=== PATIENT | female | born 1990 | race Caucasian/White ===

== ENCOUNTER 2019-09-22 15:17 | Emergency (ER) | payer OTHER ==
--- OUTSIDE RECORDS SUMMARY | 2019-09-22 15:34 | XMS REPORT | Continuity of Care Document ---
:1990 External Reference #:[id number] Author Name James Harris M.D. (transmitted by agent of provider Alla Polanco ) Address [address], [place] [address] Care Team Providers Name Role Phone Mame Page MD - Internal Care Team Information Advisor Consultant Medicine Shelley Michaels FNP-C - Nurse Care Team Information Advisor Consultant Practitioner Problems Active Problems Provider Date Acne vulgaris Mame Page M.D. Onset: 05/08/2016 Migraine without aura, not refractory Onset: Family history of malignant neoplasm of breast Mame Page M.D. Onset: Note: mom at age 65 Social History Type Date Description Comments Sex Unknown ETOH Use Rarely consumes alcohol Tobacco Use Start: Unknown Patient has never smoked Smoking Status Reviewed: 08/16/19 Patient has never smoked Exercise Exercises regularly running every other Type/Frequency day 2-3 miles rock climbing Allergies, Adverse Reactions, Alerts Active Allergies Reaction Severity Comments Date Sulfa hives 07/21/2011 Amoxicillin hives 07/21/2011 Ampicillin Urticaria Moderate 07/28/2012 Medications Active Medications SIG Qnty Indications Ordering Date Provider Aimovig inject sq once a 3ml [id number] Erazo 06/21/2019 70mg/ml month Rickie Harris Solution Auto-Inject Topiramate Take 1 Tablet By 180tabs Samantha Erazo 12/16/2018 50mg Mouth Every Morning Rickie Harris Tablets And 2 Tablets Every Evening Reglan 1 po bid with 30tabs [id number] Erazo 03/04/2018 5mg Tablets naratriptan prn Rickie Harris migraine Propranolol HCL 2 tabs by mouth 360tabs G43.009 James Erazo 01/04/2018 twice a day Rickie Harris 20mg Tablets Naratriptan HCL 1 by mouth as 9tabs G43.009 James Erazo 07/13/2017 needed migraine may Rickie Harris 2.5mg Tablets repeat in 4 hours, max 2/day, max 2 days per week Multi Complete daily Unknown Capsules Tylenol Extra 2 tabs by mouth Unknown Strength three times daily 500mg as needed Tablets Ibuprofen 1 tabs by mouth Unknown 200mg every 8 hours take Tablets with food as needed Medications Administered in Office Medication SIG Qnty Indications Ordering Provider Date Injection Methylprednisolone Sodium Arnie Garcia NP 10/03/2018 Succinate To 40 MG Injection PPD Injection Nurse Visit A 06/30/2017 Immunizations CPT Code Status Date Vaccine Lot # [id number] Given 05/05/2019 Influ Virus Vaccine, Quadrivalent, Split Virus, [place] [address] Given 06/16/2018 Influenza Virus Vaccine, Quadrivalent, Split, Preservative Free 63618 Given 05/31/2017 Influenza Virus Vaccine, Quadrivalent, Split, [id number] Preservative Free 96194 Given 05/14/2016 Influ Virus Vaccine, Quadrivalent, Split Virus, [place] [address] Given 05/15/2015 Influenza Virus Vaccine, Quadrivalent, Split, Preservative Free 18999 Given 05/10/2014 Flu Vaccine Split Virus Preservative Free For Indiv 3Yr Older 06792 Given 12/28/2013 Pneumonia Vaccine [id number] 59026 Given 03/23/2012 Influenza Virus 3Yrs & Over [id number] 02254 Given 07/21/2011 Influenza Virus 3Yrs & Over 15304 Given 07/21/2011 Influenza Virus 3Yrs & Over [id number] 77194 Given 07/17/2011 Yellow Fever Immunization 82802 Given 02/13/2011 Tdap - Tetanus/Diptheria/Acellular Pertussis 72163 Given 10/05/2007 Gardasil (HPV) 88657 Given 06/01/2007 Gardasil (HPV) 63159 Given 03/30/2007 Gardasil (HPV) 03243 Given 12/01/2005 Tdap - Tetanus/Diptheria/Acellular Pertussis 79844 Given 01/20/2005 Meningitis MCV4 MenACWY Meningococcal Conjugate Vaccine 92191 Given 05/18/2003 Hepatitis B Vaccine Adult Dosage 84676 Given 12/27/2002 Hepatitis B Vaccine Adult Dosage 52584 Given 08/11/2002 Hepatitis B Vaccine Adult Dosage 18856 Given 08/25/1996 Tdap - Tetanus/Diptheria/Acellular Pertussis 95833 Given 08/25/1996 Measles Mumps And Rubella MMR 71756 Given 02/22/1993 Varicella (Chicken Pox) Immunization 91430 Given 11/21/1992 Tdap - Tetanus/Diptheria/Acellular Pertussis 09126 Given 11/12/1992 Measles Mumps And Rubella MMR 69429 Given 11/12/1992 Hib PRP-T Conjugate 4 Dose Schedule Vital Signs Date Vital Result Comment 08/16/2019 4:14pm Height 61 inches 5'1" Weight 95.00 lb Heart Rate 68 /min BP Systolic 94 mmHg BP Diastolic 58 mmHg BMI (Body Mass Index) 17.9 kg/m2 06/21/2019 11:09am Height 61 inches 5'1" Weight 95.00 lb Heart Rate 76 /min BP Systolic Sitting 98 mmHg BP Diastolic Sitting 60 mmHg Respiratory Rate 18 /min BMI (Body Mass Index) 17.9 kg/m2 Results Test Acquired Date Facility Test Result H/L Range Note CBC Auto 06/12/2019 [facility] White Blood 6.6 10^3/uL Normal 3.5-10.[address] [place] [address] [phone] Red Blood Count 3.89 10^6/uL Normal 3.70-4.87 Hemoglobin 12.4 g/dL Normal 12.0-16.0 Hematocrit 36 % Normal 35-47 Mean Corpuscular Volume 93 fL Normal 80-97 Mean Corpuscular Hemoglobin 32 pg High 27-31 Mean Corpuscular HGB Conc 34 g/dL Normal 31-36 Red Cell Distribution Width 13 % Normal 10-15 Platelet Count 306 10^3/uL Normal 150-450 Mean Platelet Volume 8.2 fL Normal 7.4-10.4 Abs Neutrophils 4.6 10^3/uL Normal 1.5-7.7 Abs Lymphocytes 1.5 10^3/uL Normal 1.0-4.8 Abs Monocytes 0.4 10^3/uL Normal 0-0.8 Abs Eosinophils 0.1 10^3/uL Normal 0-0.6 Abs Basophils 0.0 10^3/uL Normal 0-0.2 Abs Nucleated RBC 0.0 10^3/uL Granulocyte % 68.6 % Lymphocyte % 22.4 % Monocyte % 6.5 % Eosinophil % 2.1 % Basophil % 0.4 % Nucleated Red Blood Cells % 0.0 Laboratory 06/12/2019 [facility] TSH (Thyroid 1.27 Normal 0.34 -5.60 test finding [address] Stim Horm) mcIU/mL [place], [place] [id number] [phone] Ferritin 82.6 ng/mL Normal 11-307 Procedures Date Code Description Status 08/31/2017 76779503 Colonoscopy Completed Medical Devices Description No Information Available Encounters Type Date Location Provider Dx Diagnosis Office Visit 06/21/2019 [facility] James Erazo G43.009 Migraine w/o aura, 11:00a [facility] M.D. not intractable, w/o status migrainosus Office Visit 03/14/2019 [facility] Arnie Garcia NP G43.009 Migraine w/o aura, 9:30a [facility] not intractable, w/o status migrainosus Assessments Date Code Description Provider 06/21/2019 G43.009 Migraine without aura, not intractable, James Harris M.D. without status migra 03/14/2019 G43.009 Migraine without aura, not intractable, Arnie Garcia NP without status migra Plan of Treatment Future Appointment(s):11/15/2019 4:00 pm - James Harris M.D. at [facility]10/19/2019 11:10 am - Mame Page M.D. at [facility] Internal Medicine - [facility] Functional Status Description No Information Available Mental Status Description No Information Available Referrals Description No Information Available
[2019-09-22 15:36] VITALS: BP 103/56
--- NOTE | 2019-09-22 15:41 | UC ---
Laceration HPI - HPI Summary HPI Summary: 29 yo female presents, accompanied by mother, with chin injury. 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 Landed on her right wrist and her chin hit the pavement. No LOC. She was able to get to her feet and go home. She bandaged the area and came directly to . Last tetanus was 9 years ago. Denies headache, dizziness, n/v, jaw pain, dental fracture. - History Of Current Complaint Chief Complaint: UCGeneralIllness Stated Complaint: CHIN INJURY Time Seen by Provider: 09/22/19 15:41 Hx Obtained From: Patient Hx Last Menstrual Period: 09/01/19 Laceration Location: Face Mechanism Of Injury: Blunt Trauma Onset/Duration: Sudden Onset Severity: Mild Pain Intensity: 4 Pain Scale Used: 0-10 Numeric - Allergies/Home Medications Allergies/Adverse Reactions: Allergies Allergy/AdvReac Type Severity Reaction Status Date / Time amoxicillin Allergy Unknown Verified 09/22/19 15:36 Reaction Details ampicillin Allergy Unknown Verified 09/22/19 15:36 Reaction Details Sulfa (Sulfonamide Allergy Unknown Verified 09/22/19 15:36 Antibiotics) Reaction Details Home Medications: Home Medications Metoclopramide TAB* [Reglan TAB*] 5 mg PO Q8H PRN 08/27/17 [History Confirmed ] Naratriptan HCl 2.5 mg PO BID PRN 08/27/17 [History Confirmed 09/22/19] Topiramate [Topamax 50 mg tab] 50 - 100 mg PO BID 08/27/17 [History Confirmed ] Multivitamins/Minerals TAB* [Thera M Plus TAB*] 1 tab PO DAILY 08/31/17 [ History Confirmed 09/22/19] Acetaminophen [Acetaminophen Extra Strength] 1,000 mg PO Q6HR 10/11/18 [History Confirmed 09/22/19] Ibuprofen TAB* [Advil TAB*] 200 mg PO DAILY PRN 10/11/18 [History Confirmed ] Propranolol 20 mg TAB [Inderal TAB*] 40 mg PO BID 10/11/18 [History Confirmed ] Erenumab-Aooe [Aimovig Autoinjector] 70 mg SQ MONTHLY 09/12/19 [History Confirmed 09/22/19] Onabotulinimtoxina 200 UNITS* [Botox 200 UNITS*] 200 unit PO MONTHLY 09/22/19 [ History Confirmed 09/22/19] PMH/Surg Hx/FS Hx/Imm Hx Neurological History: Migraine - Surgical History Surgical History: None - Family History Known Family History: Positive: Respiratory Disease, Other - Cancer - Social History Lives: With Family Alcohol Use: None Substance Use Type: None Smoking Status (MU): Never Smoked Tobacco Review of Systems All Other Systems Reviewed And Are Negative: No Constitutional: Positive: Negative Skin: Positive: Other - Right wrist abrasion. Chin laceration Eyes: Positive: Negative ENT: Positive: Negative Respiratory: Positive: Negative Cardiovascular: Positive: Negative Gastrointestinal: Positive: Negative Neurovascular: Positive: Negative Musculoskeletal: Positive: Negative Neurological/Mental Status: Positive: Negative Psychological: Positive: Negative Physical Exam - Summary Physical Exam Summary: GENERAL: NAD. WDWN. No pain distress. SKIN: RIGHT WRIST: Volar aspect with superficial abrasion clean appearing. CHIN : Superficial abrasion with 6mm partial thickness horizontal laceration with 1- 2mm width. No active bleeding. Clean appearing. HEENT: Head: AT/NC. No raccoon eyes or battles sign. Eyes: PERRLA. EOM intact. Ears: Hearing grossly normal. No hemotympanum DENTAL: No dental fracture or loose teeth. NECK: Supple. Nontender. FROM CHEST: CTAB. No r/r/w. No accessory muscle use. Breathing comfortably and in no distress. CV: RRR. Pulses intact. Brisk cap refill. MSK: Opens and closes jaw without pain. Mandible and TMJ nttp. NEURO: A&Ox3. Gait with normal base. Romberg: maintains balance, no pronator drift. Normal speech. No facial drooping. PSYCH: Age appropriate behavior. Triage Information Reviewed: Yes Vital Signs: Initial Vital Signs Temp 98.5 F 09/22/19 15:31 Pulse 57 09/22/19 15:31 Resp 12 09/22/19 15:31 BP 103/56 09/22/19 15:31 Pulse Ox 100 09/22/19 15:31 Vital Signs Reviewed: Yes Laceration Course/Dx - Course/Dx Course Of Treatment: The pt and mother with her initially asked if there was a plastic surgeon available for this chin laceration. 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 Mother elected to call Dr. Escobar's office and a family member has seen him in the past - she left a message as his office was closed. Waited approx 1 hour with no call back. Mother and pt then elected to allow me to perform sutures. The procedure was explained to the pt and all questions were answered. A time out was performed, witnessed, and signed. The area was irrigated with 100mL sterile saline. 1mL of 2% lidocaine without epi was administered and good anesthetization was achieved. The wound was explored. In the usual sterile fashion, THREE 6-0 prolene interrupted sutures were placed. Homeostasis achieved. The wound was bandaged with telfa. Pt tolerated procedure well. tdap updated today. - Diagnosis Provider Diagnosis: Chin laceration, Abrasion of wrist, Fall Discharge ED - Sign-Out/Discharge Documenting (check all that apply): Patient Departure All imaging exams completed and their final reports reviewed: No Studies - Discharge Plan Condition: Stable Disposition: HOME Patient Education Materials: Care For Your Stitches (ED), Laceration (ED) Referrals: Mame Page MD [Primary Care Provider] - Additional Instructions: 1) Change the bandage daily until sutures are removed. 2) If you develop a fever, colored or thick discharge, increased pain or swelling - please call your PCP or return for a wound check. 3) Please return in 5 days to have your THREE sutures removed. 4) Your tetanus shot was updated today - Billing Disposition and Condition Condition: STABLE Disposition: Home
[2019-09-22] MEDS ORDERED: Tetan/Diph/Pertus SYR(Tdap)* 0.5 ML SYR(BOOSTRIX) use SYR contains LATEX IM ONE (16:04)
[2019-09-22] MEDS ORDERED: Lidocaine 2% PF * 5 ML VIAL INJ ONE (16:57)
== END 2019-09-22 18:08 | disposition home or self-care (01) ==
LOC: UCEAST 15:17
DX: S01.81XA Laceration without foreign body of other part of head, initial encounter (principal); S60.811A Abrasion of right wrist, initial encounter; Z23 Encounter for immunization; G43.909 Migraine, unspecified, not intractable, without status migrainosus; W18.30XA Fall on same level, unspecified, initial encounter; Y92.9 Unspecified place or not applicable; Z88.0 Allergy status to penicillin; Z88.2 Allergy status to sulfonamides
CPT/HCPCS: 12011; 90715; 99211; G0463

== ENCOUNTER 2019-09-27 13:02 | Emergency (ER) | payer OTHER ==
[2019-09-27 13:55] VITALS: BP 90/45
--- NOTE | 2019-09-27 14:09 | UC ---
HPI Wound/Suture Re-check - HPI Summary HPI Summary: 29-year-old female who received 3 stitches in her chin 5 days ago at this facility. She had tripped and fallen hitting her chin. No loss of consciousness at the time and the area has been healing nicely. - History Of Current Complaint Chief Complaint: UCLaceration Stated Complaint: STITCHES REMOVED Time Seen by Provider: 09/27/19 14:00 Hx Obtained From: Patient Hx Last Menstrual Period: 09/01/19 Onset/Duration: Sudden Onset, Lasting Days Severity: Mild Pain Intensity: 0 - Allergies/Home Medications Allergies/Adverse Reactions: Allergies Allergy/AdvReac Type Severity Reaction Status Date / Time amoxicillin Allergy Unknown Verified 09/27/19 13:51 Reaction Details ampicillin Allergy Unknown Verified 09/27/19 13:51 Reaction Details Sulfa (Sulfonamide Allergy Unknown Verified 09/27/19 13:51 Antibiotics) Reaction Details Home Medications: Home Medications Metoclopramide TAB* [Reglan TAB*] 5 mg PO Q8H PRN 08/27/17 [History Confirmed ] Naratriptan HCl 2.5 mg PO BID PRN 08/27/17 [History Confirmed 09/22/19] Topiramate [Topamax 50 mg tab] 50 - 100 mg PO BID 08/27/17 [History Confirmed ] Multivitamins/Minerals TAB* [Thera M Plus TAB*] 1 tab PO DAILY 08/31/17 [ History Confirmed 09/22/19] Acetaminophen [Acetaminophen Extra Strength] 1,000 mg PO Q6HR 10/11/18 [History Confirmed 09/22/19] Ibuprofen TAB* [Advil TAB*] 200 mg PO DAILY PRN 10/11/18 [History Confirmed ] Propranolol 20 mg TAB [Inderal TAB*] 40 mg PO BID 10/11/18 [History Confirmed ] Erenumab-Aooe [Aimovig Autoinjector] 70 mg SQ MONTHLY 09/12/19 [History Confirmed 09/22/19] Onabotulinimtoxina 200 UNITS* [Botox 200 UNITS*] 200 unit PO MONTHLY 09/22/19 [ History Confirmed 09/22/19] PMH/Surg Hx/FS Hx/Imm Hx Previously Healthy: Yes Respiratory History: Asthma Neurological History: Migraine - Surgical History Surgical History: None - Family History Known Family History: Positive: Respiratory Disease, Other - Cancer, Non- Contributory - Social History Lives: With Family Alcohol Use: None Substance Use Type: None Smoking Status (MU): Never Smoked Tobacco Review of Systems All Other Systems Reviewed And Are Negative: Yes Skin: Positive: Other - [address] in her chin and have been healing without difficulty. Is Patient Immunocompromised?: No Physical Exam Triage Information Reviewed: Yes Appearance: Well-Appearing, No Pain Distress, Well-Nourished Vital Signs: Initial Vital Signs Temp 98.1 F 09/27/19 13:51 Pulse 59 09/27/19 13:51 Resp 18 09/27/19 13:51 BP 90/45 09/27/19 13:51 Pulse Ox 100 09/27/19 13:51 Vital Signs Reviewed: Yes Skin: Positive: Other - 3 sutures are intact. The area appears to have healed. Course/Dx - Course Course Of Treatment: The sutures were removed without difficulty. The patient tolerated procedure well. - Diagnosis Provider Diagnosis: Encounter for removal of sutures Discharge ED - Sign-Out/Discharge Documenting (check all that apply): Patient Departure All imaging exams completed and their final reports reviewed: No Studies - Discharge Plan Condition: Good Disposition: HOME Patient Education Materials: Stitches Removal (ED) Referrals: Mame Page MD [Primary Care Provider] - Additional Instructions: You can apply a small amount of bacitracin ointment to the area. Follow-up with your doctor as needed. - Billing Disposition and Condition Condition: GOOD Disposition: Home
== END 2019-09-27 14:16 | disposition home or self-care (01) ==
LOC: UCEAST 13:02
DX: S01.81XD Laceration without foreign body of other part of head, subsequent encounter (principal); J45.909 Unspecified asthma, uncomplicated; G43.909 Migraine, unspecified, not intractable, without status migrainosus; W01.0XXD Fall on same level from slipping, tripping and stumbling without subsequent striking against object, subsequent encounter; Z88.0 Allergy status to penicillin; Z88.2 Allergy status to sulfonamides; Z79.899 Other long term (current) drug therapy
CPT/HCPCS: 99211; G0463